=== PATIENT | male | born 1995 | race African-American/Black ===

== ENCOUNTER 2018-03-22 10:06 | Day surgery (SDC) | payer OTHER ==
[2018-03-22] VITALS (8 sets, daily range): BP systolic 98–121; BP diastolic 53–77
[~2018-03-22] VITALS: Ht 182.9 cm; Wt 74.4 kg
[~2018-03-22 10:06] MED LIST: ceFAZolin 1gm IVPB IVPB ONE; celeBREX 200mg Cap **SURGERY PATIENTS ONLY ORAL ONE; oxyCONTIN 20mg tab ORAL ONE
[2018-03-22] MEDS ORDERED: NKM (10:44)
[2018-03-22] MEDS ORDERED: oxyCONTIN 20mg tab ORAL ONE (10:56)
[2018-03-22] MEDS ORDERED: celeBREX 200mg Cap **SURGERY PATIENTS ONLY ORAL ONE (10:56)
--- NOTE | 2018-03-22 10:58 | Pre-Procedure Note/Attestation ---
Pre-Procedure Note/Attestation Complete Prior to Procedure Planned Procedure: left Procedure Narrative: removal of hardware/screw Indications for Procedure Pre-Operative Diagnosis: painful left distal femur hardware Attestation I attest that I discussed the nature of the procedure; its benefits; risks and complications; and alternatives (and the risks and benefits of such alternatives ), prior to the procedure, with the patient (or the patient's legal account representative). I attest that, if there was a reasonable possibility of needing a blood transfusion, the patient (or the patient's legal account representative) was given the [facility] standardized written summary, pursuant to the [place] Blood Safety Act ([place] Health and Safety Code # 1645, as amended). I attest that I re-evaluated the patient just prior to the surgery and that there has been no change in the patient's H&P, except as documented below: Loco Paredes MD Mar 22, 2018 10:58
[2018-03-22] MEDS ORDERED: Norco 5mg/325mg tab ORAL PRN ×2 (11:00→11:45)
[2018-03-22] MEDS ORDERED: D5 1/2NS 1,000 ML IV SCH (11:00)
[2018-03-22] MEDS ORDERED: HYDROmorphone 1mg/ml Carpuject SUBQ PRN (11:00)
[2018-03-22] MEDS ORDERED: Tylenol #3 tab (300mg/30mg) ORAL PRN (11:00)
[2018-03-22] MEDS ORDERED: LR 1000ml ONE (11:30)
[2018-03-22] MEDS ORDERED: NS Irrig 2000ml IRRIG ONE (11:30)
[2018-03-22] MEDS ORDERED: Sterile Water Irrig 1000ml IRRIG ONE (11:30)
[2018-03-22] MEDS ORDERED: Lidocaine 1% MPF 10mg/ml 5ml ONE (11:33)
[2018-03-22] MEDS ORDERED: Sodium Chloride 10ml vial INJ ONE (11:33)
[2018-03-22] MEDS ORDERED: Propofol 200mg/20ml IV ONE (11:33)
[2018-03-22] MEDS ORDERED: Dexamethasone 4mg/ml vial ONE (11:33)
[2018-03-22] MEDS ORDERED: Midazolam 2mg/2ml Inj ONE (11:34)
[2018-03-22] MEDS ORDERED: Bupivacaine w/Epi 0.5% 30ml Vial INJ ONE (11:37)
[2018-03-22] MEDS ORDERED: NeoSporin Gu Irrig 1ml Amp IRRIG ONE (11:37)
[2018-03-22] MEDS ORDERED: Bacitracin 50000 Units Vial ONE (11:37)
[2018-03-22] MEDS ORDERED: LR 1000ml 1,000 ML IVLG SCH (11:41)
--- NOTE | 2018-03-22 11:41 | Anethesia Preoperative Eval ---
Anesthesia Pre-op PMH/ROS General Date of Evaluation: Mar 22, 2018 Time of Evaluation: 11:36 Anesthesiologist: Diane ASA Score: ASA 1 Mallampati Score Class I : Soft palate, uvula, fauces, pillars visible Class II: Soft palate, uvula, fauces visible Class III: Soft palate, base of uvula visible Class IV: Only hard plate visible Mallampati Classification: Class I Surgeon: Lena Diagnosis: L Distal Femur Painful Screw Surgical Procedure: L Distal Femur Screw Removal Anesthesia History: none Family History: no anesthesia problems Allergies: Coded Allergies: No Known Allergies (Unverified , 03/21/18) Medications: see eMAR Patient NPO?: Yes Anesthesia Pre-op Phys. Exam Physician Exam Last Vital Signs Date Time Temp Pulse Resp B/P (MAP) Pulse Ox O2 Delivery O2 Flow Rate FiO2 03/22/18 10:46 Room Air 03/22/18 10:44 98.1 54 18 121/77 54 Constitutional: NAD Neurologic: CN 2-12 intact Cardiovascular: RRR Respiratory: CTA Gastrointestinal: S/NT/ND Airway Exam Mallampati Score: Class I MO: full ROM: full Teeth: intact Anesthesia Pre-op A/P Risk Assessment & Plan Assessment: ASA 1 Plan: GA, SED Status Change Before Surgery: No Pre-Antibiotics Dru Gram Ancef IV Given Within 1 Hr of Incision: Yes Time Given: 11:51 Chidi Contreras MD Mar 22, 2018 11:41
[2018-03-22] MEDS ORDERED: oxyCODONE HCL/Acetaminophen 5/325mg ORAL PRN (11:45)
[2018-03-22] MEDS ORDERED: HYDROcodone/Acetamin 7.5/325 tab ORAL PRN (11:45)
[2018-03-22] MEDS ORDERED: Ketorolac 30mg Inj IV PRN ×2 (11:45)
[2018-03-22] MEDS ORDERED: LORazepam Inj 2mg/ml 1ml IV PRN (11:45)
[2018-03-22] MEDS ORDERED: fentaNYL 100 mcg/2 mL IV PRN (11:45)
[2018-03-22] MEDS ORDERED: Meperidine 50mg/ml Inj(FOR RIGORS ONLY) IVP PRN (11:45)
[2018-03-22] MEDS ORDERED: DiphenhydrAMINE 50mg/ml Inj IVP PRN (11:45)
[2018-03-22] MEDS ORDERED: Midazolam 2mg/2ml Inj IVP PRN (11:45)
[2018-03-22] MEDS ORDERED: Metoclopramide 10mg/2ml Inj IVP PRN (11:45)
[2018-03-22] MEDS ORDERED: Atropine Sulfate 0.4mg/ml inj IVP PRN (11:45)
[2018-03-22] MEDS ORDERED: Hydromorphone 0.5mg/0.5ml inj IVP PRN (11:45)
--- NOTE | 2018-03-22 11:47 | Immediate Post-Op Evaluation ---
Immediate Post-Op Evalulation Immediate Post-Op Evalulation Procedure: L Distal Femur Screw Removal Date of Evaluation: Mar 22, 2018 Time of Evaluation: 13:05 IV Fluids: 300 LR Blood Products: 0 Estimated Blood Loss: 4 Urinary Output: 0 Blood Pressure Systolic: 105 Blood Pressure Diastolic: 66 Pulse Rate: 47 Respiratory Rate: 16 O2 Sat by Pulse Oximetry: 100 Temperature (Fahrenheit): 97.2 Pain Score (1-10): 2 Nausea: No Vomiting: No Complications 0 Patient Status: awake, reacts, patent, none Hydration Status: adequate Dru Gram Ancef Iv Given Within 1 Hr of Incision: Yes Time Given: 11:51 Chidi Contreras MD Mar 22, 2018 11:47
--- NOTE | 2018-03-22 11:48 | 48 Hour Post Anesthesia Eval ---
Post Anesthesia Evaluation Procedure: L Distal Femur Screw Removal Date of Evaluation: Mar 22, 2018 Time of Evaluation: 15:12 Blood Pressure Systolic: 118 0: 67 Pulse Rate: 48 Respiratory Rate: 18 Temperature (Fahrenheit): 98.2 O2 Sat by Pulse Oximetry: 100 Airway: patent Nausea: No Vomiting: No Pain Intensity: 1 Hydration Status: adequate Cardiopulmonary Status: Stable Mental Status/LOC: patient returned to baseline Follow-up Care/Observations: 0 Post-Anesthesia Complications: 0 Follow-up care needed: ready to discharge Chidi Contreras MD Mar 22, 2018 11:48
[2018-03-22] MEDS ORDERED: Acetaminophen (Non formulary) 100 ML IV ONE (12:00)
--- NOTE | 2018-03-22 12:06 | Brief Operative Note ---
Immediate Post Operative Note Operative Note Pre-op Diagnosis: painful left distal femur hardware Procedure: left distal femur screw removal Post-op Diagnosis: same as pre-op Surgeon: mihir Anesthesiologist: Diane Anesthesia: general Specimen: yes - screw sent to pathology Complications: none Condition: stable Fluids: 500 Estimated Blood Loss: minimal Drains: none Implant(s) used?: No Loco Paredes MD Mar 22, 2018 12:06
--- NOTE | 2018-03-22 15:21 | Diagnostic Imaging Report ---
Indication: Intraoperative imaging Comparison: None Findings: Several fluoroscopic views of the left tibia and fibula were obtained intraoperatively. There is a lateral compression plate over the distal left femur and femoral condyles. One of the lower screws was removed. IMPRESSION: Screw removal
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
== END 2018-03-22 14:10 | disposition home or self-care (01) ==
LOC: SUR 10:06 → EDBD 10:06 → SUR 14:10
DX: T84.84XA Pain due to internal orthopedic prosthetic devices, implants and grafts, initial encounter (principal)
CPT/HCPCS: 20680; 73590; 76001; J0690; J1100; J1170; J2250; J2405; J2704; 94003; 94150